=== PATIENT | male | born 1965 | race Caucasian/White ===

== ENCOUNTER 2017-11-16 19:55 | Inpatient (IN) ==
[2017-11-16 21:19] LABS: Basophils # 0.1 10*3/uL (0.0-0.2); Basophils % 0.9 % (0.0-0.8); Eosinophils # 0.2 10*3/uL (0.0-0.87); Eosinophils % 2.4 % (0.00-10.9); Hematocrit 41.3 VOL% (42.0-52.0); Hemoglobin 13.5 GM/DL (14.0-18.0); Immature Granulocytes % 0.3 %; Immature Granulocytes Absolute 0.03 #; Lymphocytes # 2.2 10*3/uL (1.4-4.0); Lymphocytes % 22.5 % (21.2-54.2); Mean Corpuscular HGB Conc 32.7 GM/DL (32-36); Mean Corpuscular Hemoglobin 30 PG (27-34); Mean Corpuscular Volume 90.2 FL (87-102); Mean Platelet Volume 10.2 FL (9.6-12.0); Monocytes # 0.6 10*3/uL (0.11-0.8); Neutrophils # 6.8 10*3/uL (1.4-7.4); Neutrophils % 67.9 % (38.7-73.9); Platelet Count 275 T/CUMM (130-400); Red Blood Count 4.58 MC/CUMM (3.8-5.5); Red Cell Distribution Width 13.5 % (9.3-17.3)
[2017-11-16] MEDS ORDERED: NITROGLYCERIN 2% OINT 1 INCH/GM PACK TOP STA (21:23)
[2017-11-16] MEDS ORDERED: MORPHINE 2 MG/1 ML SYRINGE IV STA (21:23)
[2017-11-16] MEDS ORDERED: methylPREDNISolone SOD SUC 125 MG/2 ML VIAL IV STA (21:23)
[2017-11-16] MEDS ORDERED: FUROSEMIDE 100 MG/10 ML VIAL IV STA (21:23)
[2017-11-16] MEDS ORDERED: ONDANSETRON 4 MG/2 ML VIAL IV STA (21:23)
[2017-11-16] MEDS ORDERED: ASPIRIN 325 MG TABLET PO STA (21:23)
[2017-11-16 21:30] LABS: PT Patient Result 10.7 SECS; Partial Thromboplastin Time 25.7 SECS (0-40)
[2017-11-16] MEDS ORDERED: ALBUTEROL 2.5 MG/3 ML NEB RESP TX SCH (21:30)
[2017-11-16 21:39] LABS: Albumin 3.3 G/DL (3.4-5.0); Bilirubin,Total 0.6 MG/DL (0.2-1.0); Calcium 8.7 MG/DL (8.5-10.1); Magnesium 2.1 MG/DL (1.8-2.4); Osmolality,Calculated 284.1 MOS/KG (273-304); Potassium 4.3 MMOL/L (3.5-5.1); Total Protein 6.5 G/DL (6.4-8.3)
[2017-11-16] MEDS ORDERED: MORPHINE 2 MG/1 ML SYRINGE ONE (22:00)
[2017-11-16] MEDS ORDERED: NITROGLYCERIN 2% OINT 1 INCH/GM PACK TOP ONE (22:00)
[2017-11-16] MEDS ORDERED: FUROSEMIDE 100 MG/10 ML VIAL ONE (22:00)
[2017-11-16] MEDS ORDERED: methylPREDNISolone SOD SUC 125 MG/2 ML VIAL ONE (22:00)
[2017-11-16] MEDS ORDERED: ASPIRIN 325 MG TABLET ONE (22:00)
[2017-11-16] MEDS ORDERED: ONDANSETRON 4 MG/2 ML VIAL ONE (22:00)
[2017-11-16 22:53] LABS: Apearance,Urine CLEAR (Clear); Bilirubin,Urine Negative (Negative); Blood, Urine Negative (Negative); Glucose,Urine (UA) Negative (Negative); Ketones,Urine Negative (Negative); Nitrite,Urine Negative (Negative); Protein,Urine Negative; RBC,Urine <1 /HPF (0-4); Urine Color Straw (Yellow); Urine Specific Gravity 1.005 (1.001-1.035); Urine Urobilinogen < 2.0 EU/DL (0.2-1.0)
[2017-11-16 23:03] LABS: Barbiturates Screen,Urine Negative (Negative); Benzodiazepines Screen,Urine Negative (Negative); Cannabinoid Screen,Urine Negative (Negative); Opiate Screen,Urine Negative (Negative); Phencyclidine Screen,Urine Negative (Negative)
[2017-11-16] MEDS ORDERED: MORPHINE 2 MG/1 ML SYRINGE IV PRN (23:44)
[2017-11-16] MEDS ORDERED: ALBUTEROL/IPRATROPIUM 3 ML NEB RESP TX PRN (23:44)
[2017-11-16] MEDS ORDERED: ONDANSETRON 4 MG/2 ML VIAL IV PRN (23:44)
[2017-11-16] MEDS ORDERED: NICOTINE 21 MG/24 HR PATCH TRANSDERM PRN (23:44)
[2017-11-16] MEDS ORDERED: ZALEPLON 5 MG CAPSULE PO PRN (23:44)
[2017-11-16] MEDS ORDERED: methylPREDNISolone 4 MG TABLET PO SCH (23:44)
[2017-11-17] MEDS: NITROGLYCERIN 2% OINT 1 INCH/GM PACK TOP SCH ×2 (01:02→09:47)
[2017-11-17] MEDS: ALBUTEROL/IPRATROPIUM 3 ML NEB RESP TX SCH ×3 (01:43→12:45)
[2017-11-17] MEDS: methylPREDNISolone SOD SUC 40 MG/1 ML VIAL IV SCH ×2 (05:12→14:49)
[2017-11-17 05:28] LABS: Risk Ratio 5.21; VLDL CHOLESTEROL 10.6 MG/DL
[2017-11-17] MEDS ORDERED: CARVEDILOL 6.25 MG TABLET PO SCH (09:00)
[2017-11-17] MEDS ORDERED: PANTOPRAZOLE 40 MG TABLET PO SCH (09:00)
[2017-11-17] MEDS ORDERED: LISINOPRIL/HCTZ 20-25 MG TABLET PO SCH (09:00)
[2017-11-17] MEDS ORDERED: DOCUSATE SODIUM 100 MG CAPSULE PO SCH (09:00)
[2017-11-17] MEDS ORDERED: LEVOFLOXACIN 500 MG TABLET PO SCH (09:00)
[2017-11-17] MEDS ORDERED: ASPIRIN EC 81 MG TABLET PO SCH (09:00)
[2017-11-17] MEDS ORDERED: ENOXAPARIN 40 MG/0.4 ML SYRINGE SUBCUT SCH (09:00)
[2017-11-17] MEDS ORDERED: LISINOPRIL 10 MG TABLET PO SCH (09:00)
[2017-11-17] MEDS ORDERED: CLOPIDOGREL 75 MG TABLET PO SCH (09:00)
[2017-11-17] MEDS ORDERED: LOVASTATIN 20 MG TABLET PO SCH (17:00)
[2017-11-17 17:38] VITALS: BP 141/76
== END 2017-11-17 17:10 | disposition home or self-care (01) | DRG 191 ==
LOC: N.ED 19:55 → N.EDINP 22:39 → N.TELEN 23:19
PROVIDERS: ADMIT Internal Medicine Geriatric Medicine; ATTEND Internal Medicine Geriatric Medicine